=== PATIENT | male | born 1985 | race African-American/Black ===

== ENCOUNTER 2021-07-27 09:53 | Outpatient (RCR) | payer OTHER | END 2021-08-07 | LOC: PT 09:53 | PROVIDERS: ATTEND Neurological Surgery | DX: M51.17 Intervertebral disc disorders with radiculopathy, lumbosacral region (principal) ==

== ENCOUNTER 2021-08-22 11:00 | Outpatient (RCR) | payer OTHER | END 2021-09-07 | LOC: PT 11:00 | PROVIDERS: ATTEND Neurological Surgery | DX: M51.17 Intervertebral disc disorders with radiculopathy, lumbosacral region (principal) ==

== ENCOUNTER 2021-10-01 10:00 | Outpatient (RCR) | payer OTHER | END 2021-10-08 | LOC: PT 10:00 | PROVIDERS: ATTEND Neurological Surgery | DX: M51.17 Intervertebral disc disorders with radiculopathy, lumbosacral region (principal); M54.50 Low back pain, unspecified; M62.81 Muscle weakness (generalized); R29.3 Abnormal posture; R26.2 Difficulty in walking, not elsewhere classified ==

== ENCOUNTER 2021-10-09 10:25 | Outpatient (RCR) | payer OTHER | END 2021-11-05 | LOC: PT 10:25 | PROVIDERS: ATTEND Neurological Surgery | DX: M51.17 Intervertebral disc disorders with radiculopathy, lumbosacral region (principal); M54.50 Low back pain, unspecified; R29.3 Abnormal posture ==